=== PATIENT | male | born 1970 | race Caucasian/White ===

== ENCOUNTER → 2020-04-01 | Outpatient (CLI) | payer OTHER ==
--- NOTE | 2020-04-02 03:46 | MR ---
EXAMINATION TYPE: MR brain wo/w con DATE OF EXAM: 04/01/2020 COMPARISON: None HISTORY: Dizziness, memory loss, headaches. History head injury. CONTRAST: Standard multiplanar, multisequence MRI departmental protocol utilizing 7 mL intravenous Gadavist nevin olinium contrast. Ventricles have fairly normal size. There is no mass effect nor midline shift. There is no sign of in tracranial hemorrhage. There is occipital metal artifact which limits the exam to small extent in the occipital lobes. The diffusion images show no evidence of an acute infarct. The corpus callosum appears normal. Brainstem is intact. Robbins-white matter structures have fairly nor mal signal pattern. There is no evidence of cerebral edema. There is no evidence of retro-orbital mass. The bony structures appear intact. There is normal enhancement of the venous sinuses. There is no pathologic enhancement. IMPRESSION: MR scan of the brain appears normal. Metal artifact in the occipital region.
== END | disposition home or self-care (01) ==
LOC: RADMRIMAIN 20:42
PROVIDERS: ATTEND Psychiatry & Neurology Neurology
DX: C71.9 Malignant neoplasm of brain, unspecified (principal); Z18.10 Retained metal fragments, unspecified
CPT/HCPCS: 70553; A9585